=== PATIENT | male | born 1950 | race Two or more races ===

== ENCOUNTER 2022-07-02 18:07 | Emergency (ER) | payer OTHER ==
[~2022-07-02] VITALS: Ht 157.5 cm; Wt 89.8 kg
[2022-07-02] MEDS ORDERED: GLUMETZA500 MG PO (18:13)
[2022-07-02] MEDS ORDERED: AVAPRO75 MG PO (18:15)
== END 2022-07-02 20:31 | disposition home or self-care (01) ==
LOC: ER 18:07
DX: S81.822A Laceration with foreign body, left lower leg, initial encounter (principal); W45.8XXA Other foreign body or object entering through skin, initial encounter; W22.8XXA Striking against or struck by other objects, initial encounter; Y93.9 Activity, unspecified; Y92.010 Kitchen of single-family (private) house as the place of occurrence of the external cause